=== PATIENT | female | born 1990 | race Caucasian/White ===

== ENCOUNTER 2016-11-23 09:58 | Inpatient (IN) | payer BC ==
[~2016-11-23] VITALS: Ht 162.6 cm; Wt 80.9 kg
[2017-01-04] VITALS (7 sets, daily range): BP systolic 99–129; BP diastolic 55–72; PULSE 75–93; TEMP 97.9
[2017-01-04] MEDS ORDERED: PRENATAL PO (18:52)
[2017-01-04] MEDS ORDERED: OMEGA-3 1000 MG1 CAP PO (18:53)
[2017-01-04] MEDS ORDERED: OSCAL 500 TAB500 MG PO (19:13)
[2017-01-04 19:19] LABS: BASO # 0.1 (0.0-0.2); BASO % 0.4 % (0.0-2.0); EOS # 0.2 (0.0-0.7); EOS % 1.3 % (0-4.0); GRAN # 8.6 (1.4-6.5); GRAN % 73.8 % (42.2-75.2); LYMPH # 1.7 (1.2-3.4); LYMPH % 14.4 % (20.0-51.0); MEAN CELL VOLUME 81 fl (80.0-100.0); MEAN CORPUSCULAR HGB CONC 33 g/dl (33.0-37.0); MEAN PLATELET VOLUME 10.4 fl (7.4-10.4); MONO # 1.1 (0.1-0.6); PLATELET COUNT 297 K/mm3 (130-400); RED BLOOD COUNT 4.23 M/mm3 (4.10-5.30); REDCELL DISTRIBUTION WIDTH-CV 13.6 % (11.5-14.5); WHITE BLOOD COUNT 11.6 K/mm3 (4.8-10.8)
[2017-01-04 19:21] LABS: HEMATOCRIT 34.2 % (37.0-47.0); HEMOGLOBIN 11.4 g/dl (12.5-16.0); MEAN CORPUSCULAR HEMOGLOBIN 27 pg (27.0-31.0)
[2017-01-05] VITALS (64 sets, daily range): BP systolic 99–147; BP diastolic 51–84; PULSE 70–112; TEMP 97.4–98
[2017-01-06] VITALS (18 sets, daily range): BP systolic 102–143; BP diastolic 56–80; PULSE 84–142; TEMP 97.4–98
[2017-01-06] MEDS ORDERED: PERCOCET 325 MG1 TA2 PO (14:10)
[2017-01-06] MEDS ORDERED: IBU800 M1 PO (14:10)
[2017-01-07 07:04] VITALS: BP 110/64; PULSE 82; TEMP 97.4
[2017-01-07 08:20] LABS: BASO # 0.1 (0.0-0.2); BASO % 0.3 % (0.0-2.0); EOS # 0.1 (0.0-0.7); EOS % 0.7 % (0-4.0); GRAN # 13.2 (1.4-6.5); GRAN % 80.6 % (42.2-75.2); LYMPH # 1.6 (1.2-3.4); MEAN CELL VOLUME 82 fl (80.0-100.0); MEAN CORPUSCULAR HGB CONC 32 g/dl (33.0-37.0); MEAN PLATELET VOLUME 10.2 fl (7.4-10.4); MONO # 1.3 (0.1-0.6); MONO % 7.8 % (1.7-9.3); PLATELET COUNT 260 K/mm3 (130-400); RED BLOOD COUNT 4.39 M/mm3 (4.10-5.30); REDCELL DISTRIBUTION WIDTH-CV 14.1 % (11.5-14.5); WHITE BLOOD COUNT 16.4 K/mm3 (4.8-10.8)
[2017-01-07 08:24] LABS: HEMOGLOBIN 11.6 g/dl (12.5-16.0); MEAN CORPUSCULAR HEMOGLOBIN 26 pg (27.0-31.0)
[2017-01-07 16:14] VITALS: BP 101/64; PULSE 80; TEMP 97.4
[2017-01-07 21:30] VITALS: BP 98/54; PULSE 85; TEMP 97.4
[2017-01-08 09:25] VITALS: BP 104/80; PULSE 90; TEMP 97.5
== END 2017-01-08 13:20 | disposition home or self-care (01) | DRG 775 ==
LOC: LDRO 09:58 → EDSTATUS 13:16 → LDR 01-04 15:12 → OB 01-04 18:54 → LDR 01-06 05:41 → OB 01-06 05:41
PROVIDERS: Student in an Organized Health Care Education/Training Program
PROC: 10E0XZZ Delivery of Products of Conception, External Approach (ICD-10-PCS; principal; 2017-01-06)
PROC: 0KQM0ZZ Repair Perineum Muscle, Open Approach (ICD-10-PCS; 2017-01-06)
PROC: 3E033VJ Introduction of Other Hormone into Peripheral Vein, Percutaneous Approach (ICD-10-PCS; 2017-01-06)
DX: O26.843 Uterine size-date discrepancy, third trimester (principal); O70.1 Second degree perineal laceration during delivery; O75.89 Other specified complications of labor and delivery; O48.0 Post-term pregnancy; Z3A.40 40 weeks gestation of pregnancy; Z37.0 Single live birth
CPT/HCPCS: J2210; J2590; J2795; J7120

== ENCOUNTER 2019-09-20 07:21 | Inpatient (IN) | payer BC ==
[~2019-09-20] VITALS: Ht 162.6 cm; Wt 84.5 kg
[2019-09-20] VITALS (59 sets, daily range): BP systolic 100–144; BP diastolic 48–98; PULSE 75–120; TEMP 97.4–99
[~2019-09-20 07:21] MED LIST: IBU800 M1 PO; OMEGA-3 1000 MG1 CAP PO; OSCAL 500 TAB500 MG PO; PERCOCET 325 MG1 TA2 PO; PRENATAL PO
--- NOTE | 2019-09-20 07:30 | NUR ---
Presents to labor and delivery for induction of labor. heart monitor on. Vital signs done. Iv start to left hand, and lab drawn and sent to lab. Assessment done, questions offered and answered.
--- NOTE | 2019-09-20 08:00 | NUR ---
Rests in bed, alert. Pitocin 2 moriah units iv started as ordered.
--- NOTE | 2019-09-20 09:15 | NUR ---
Rests in bed, alert. [id number] Dr. Hearn here, visits with patient. Ambulates to the bathroom and back.
[2019-09-20 09:21] LABS: MEAN CELL VOLUME 78 fl (80.0-100.0); MEAN CORPUSCULAR HGB CONC 32 g/dl (33.0-37.0); MEAN PLATELET VOLUME 10.3 fl (7.4-10.4); PLATELET COUNT 375 K/mm3 (130-400); RED BLOOD COUNT 3.89 M/mm3 (4.10-5.30); REDCELL DISTRIBUTION WIDTH-CV 13.3 % (11.5-14.5)
[2019-09-20 09:22] LABS: HEMATOCRIT 30.4 % (37.0-47.0); HEMOGLOBIN 9.6 g/dl (12.5-16.0); MEAN CORPUSCULAR HEMOGLOBIN 25 pg (27.0-31.0)
--- NOTE | 2019-09-20 09:30 | NUR ---
0935 Dr. Hearn here, arom done, moderate amount of clear fluid noted. Pad changed.
[2019-09-20 10:36] LABS: BAND 1 % (0-10); EOSINOPHIL 4 % (0-4); LYMPHOCYTE 24 % (20.0-51.0); NEUTROPHILS 66 % (42.0-75.2); PLATELET ESTIMATE NORMAL (NORMAL)
--- NOTE | 2019-09-20 11:30 | NUR ---
Continues to sit up on birthing ball. Breathes through contractions. Denies wanting any pain medication at this time.
--- NOTE | 2019-09-20 11:45 | NUR ---
Sits on birthing ball. States ready for epidural. Anesthesia notified of request. Lactated ringers infusing bolus as ordered. Breathes through contractions.
--- NOTE | 2019-09-20 12:00 | NUR ---
Anesthesia here, visits with patient. Sits up for epidural. 1207 Space obtained and single shot given by anesthesia Flavio Velazquez.
--- NOTE | 2019-09-20 12:15 | NUR ---
Lies down after epidural. Spouse at bedside.
--- NOTE | 2019-09-20 13:45 | NUR ---
Dr. Hearn here, visits with patient. Vag exam done. has patient sit up in sitting position.
--- NOTE | 2019-09-20 14:45 | NUR ---
Having variables. Repositioned to left side. Variables down in the 60s-70s for thirty seconds then back up to 120s. Pitocin off, o28L on. [id number] Dr. Hearn called and updated. States to leave pitocin off for now.
--- NOTE | 2019-09-20 15:30 | NUR ---
Rests in bed, alert. Having hard time picking up contractions at this time. Palpated moderate.
--- NOTE | 2019-09-20 15:45 | NUR ---
Dr. Hearn here, reports dilated to anterior lip.
--- NOTE | 2019-09-20 16:45 | NUR ---
Pushes with contractions with Dr. Hearn.
--- NOTE | 2019-09-20 17:30 | NUR ---
Starts pushing again after rest.
--- NOTE | 2019-09-20 18:00 | NUR ---
1814 Attempts to straight cath patient. Vaginal area very swollen. Assist of nurse to find urethra. Catheter placed, no return. Dr. Hearn informed of this information.
--- NOTE | 2019-09-20 19:20 | NUR ---
Spoke with Dr. Hearn. FHR tracing reviewed. Pt status with pushing reviewed. on her way to hospital for evaluation of progress.
--- NOTE | 2019-09-20 19:40 | NUR ---
Dr. Hearn at the bedside. SVE per MD. Plan of care and progress reviewed with pt and at the bedside. decision. Preps for the OR started.
--- NOTE | 2019-09-20 19:56 | NUR ---
Pt off EFM to the OR for .
[2019-09-20 22:04] LABS: HEMATOCRIT 29.8 % (37.0-47.0); HEMOGLOBIN 9.5 g/dl (12.5-16.0)
[2019-09-21] VITALS: BP 99/43; PULSE 88
[2019-09-21 03:54] VITALS: BP 109/61; PULSE 93; TEMP 98.6
--- NOTE | 2019-09-21 05:00 | NUR ---
Pt up to the bathroom with standby assist and without complications. Higginbotham removed. Reema-care done and bed linens changed. Plan of care reviewed with pt.
[2019-09-21 08:00] VITALS: BP 101/50; PULSE 89; TEMP 98.6
[2019-09-21 09:33] LABS: HEMATOCRIT 23.5 % (37.0-47.0); HEMOGLOBIN 7.6 g/dl (12.5-16.0)
[2019-09-21 11:51] VITALS: BP 103/64; PULSE 94; TEMP 98.1
[2019-09-21 17:28] VITALS: BP 110/57; PULSE 93; TEMP 98.2
[2019-09-21 22:30] VITALS: BP 109/59; PULSE 87; TEMP 98.1
[2019-09-22 09:01] VITALS: BP 114/62; PULSE 104; TEMP 98
[2019-09-22] MEDS ORDERED: IBU800 M1 PO (10:23)
[2019-09-22] MEDS ORDERED: PERCOCET 325 MG1 TA2 PO (10:24)
--- NOTE | 2019-09-22 15:30 | NUR ---
discharge instructions given, pt verbalizes understanding. No further questions noted. Bands matched and hugs tag removed.
== END 2019-09-22 16:00 | disposition home or self-care (01) | DRG 788 ==
LOC: LDR 07:21 → OB 09-21 00:12
PROVIDERS: Obstetrics & Gynecology; ADMIT Student in an Organized Health Care Education/Training Program
PROC: 10D00Z1 Extraction of Products of Conception, Low, Open Approach (ICD-10-PCS; principal; 2019-09-20)
PROC: 10907ZC Drainage of Amniotic Fluid, Therapeutic from Products of Conception, Via Natural or Artificial Opening (ICD-10-PCS; 2019-09-20)
PROC: 3E033VJ Introduction of Other Hormone into Peripheral Vein, Percutaneous Approach (ICD-10-PCS; 2019-09-20)
DX: O62.0 Primary inadequate contractions (principal); Z3A.39 39 weeks gestation of pregnancy; O36.8330 Maternal care for abnormalities of the fetal heart rate or rhythm, third trimester, not applicable or unspecified; O69.1XX0 Labor and delivery complicated by cord around neck, with compression, not applicable or unspecified; O69.2XX0 Labor and delivery complicated by other cord entanglement, with compression, not applicable or unspecified; O64.0XX0 Obstructed labor due to incomplete rotation of fetal head, not applicable or unspecified; Z37.0 Single live birth
CPT/HCPCS: J0690; J1885; J2175; J2250; J2370; J2400; J2405; J2590; J2795; J3010; J7120